=== PATIENT | male | born 1985 | race Caucasian/White ===

== ENCOUNTER → 2022-04-12 | Outpatient (CLI) | payer OTHER ==
[~2022-04-12] MED LIST: ONDA4TAB11 PO
--- NOTE | 2022-04-12 09:20 | Diagnostic Imaging Report ---
PROCEDURE: MRI lumbar spine. TECHNIQUE: Multiplanar, multisequence MRI of the lumbar spine was performed without contrast. INDICATION: Low back pain. COMPARISON: None. FINDINGS: Normal alignment. Vertebral body heights are preserved. Normal bone marrow signal. No abnormal signal in the conus which terminates at L1. Normal morphology of the cauda equina. The visualized pelvis and paravertebral soft tissues are unremarkable. L1-L2: Normal. L2-L3: Normal. L3-L4: Normal. L4-L5: Normal. L5-S1: Central disc protrusion results in mild bilateral lateral recess narrowing. No spinal canal or neural foraminal narrowing. IMPRESSION: 1. Small central disc protrusion at L5-S1 results in mild bilateral lateral recess narrowing. 2. No other spondylotic change. No high-grade neural impingement in the lumbar spine. 3. No acute osseous findings. Dictated by: Dictated on workstation # [id number]
== END ==
LOC: RAD 07:33
PROVIDERS: ATTEND Family Medicine
DX: M51.27 Other intervertebral disc displacement, lumbosacral region (principal); M48.07 Spinal stenosis, lumbosacral region
CPT/HCPCS: 72148